=== PATIENT | male | born 1975 | race Caucasian/White ===

== ENCOUNTER 2016-07-20 17:11 | Emergency (ER) | payer MEDICARE ==
[~2016-07-20] VITALS: Ht 162.6 cm; Wt 65.8 kg
[~2016-07-20 17:11] MED LIST: ALPR-557 PO; AMOX500C2 PO; CARB200T76; CRB200T PO; CYCL10TA9 PO; EPITOL PO; HYDR-1231 PO; HYDR1TAB PO; LEVETIRACETAM; SOMA; SULF1TAB38 PO; [UNRECOGNIZED DRUG - CODE] PO; [UNRECOGNIZED DRUG - REMARK]
[2016-07-20] MEDS ORDERED: LEVE100015 PO ×2 (17:41→17:42)
[2016-07-20] MEDS ORDERED: morphine INJ 10 MG/ML 1ML (SYR OR VIAL) IM STA (17:56)
[2016-07-20] MEDS ORDERED: LIDOCAINE/EPI 1%-1:100,000 (XYLOCAINE) 20ML INJ STA (17:56)
--- NOTE | 2016-07-20 18:04 | ED Integumentary General ---
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 Patient states he has had multiple abscesses and thinks this is related to loading shingles at work. Patient states he has been squeezing the area and has gotten some purulent drainage. Denies fevers. Patient states he is very clean, but the people he lives with are dirty. Location Injury Occurred: denies known injury Timing/Duration: getting worse, other (2 days) Location: face Possible Cause: no cause identified (patient thinks this is related to loading shingles, but unsure) Modifying Factors: worse with other (worse was squeezing and palpation) Allergies and Home Medications Allergies Coded Allergies: NKANo Known Allergies (Verified Allergy, Unknown, 12/29/06) No Known Drug Allergies (Unverified , 07/13/08) Home Medications Alprazolam 0.5 Mg Tab, 0.5 MG PO TID PRN for ANXIETY, (Reported) Hydrocodone/Acetaminophen 1 Each Tablet, 1 EACH PO Q4H PRN for PAIN, #10 Ref 0 Prescribed by: SHWETA DOMINGUEZ on 07/20/161812 Levetiracetam 1,000 Mg Tablet, 1,000 MG PO AM, (Reported) Levetiracetam 1,000 Mg Tablet, 1,500 MG PO PM, (Reported) Minocycline HCl 100 Mg Capsule, 100 MG PO BID, #20 Ref 0 Prescribed by: SHWETA DOMINGUEZ on 07/20/161812 Sulfamethoxazole/Trimethoprim 1 Each Tablet, 1 EACH PO BID, #20 Ref 0 Prescribed by: SHWETA DOMINGUEZ on 07/20/161812 Constitutional: No chills, No dizziness, No fever, No malaise EENTM: mouth swelling (right jaw swelling), see HPI, No ear discharge, No ear pain, No eye pain, No nose congestion, No throat pain, No throat swelling Respiratory: No cough, No short of breath, No stridor, No wheezing Cardiovascular: no symptoms reported Gastrointestinal: no symptoms reported Musculoskeletal: no symptoms reported Skin: see HPI Psychiatric/Neurological: Denies Headache All Other Systems Reviewed Negative Unless Noted: Yes (Negative excepted noted.) Past Wbxymxi-Ctvoqn-Qbrubk Hx Patient Social History Alcohol Use: Denies Use Recreational Drug Use: Yes (POT) Smoking Status: Never a Smoker Recent Foreign Travel: No Contact w/Someone Who Travel: No Recent Infectious Disease Expo: No Immunizations Up To Date Tetanus Booster (TDap): Less than 5yrs Seasonal Allergies Seasonal Allergies: No Surgeries HX Surgeries: Yes Surgeries: Ear Surgery, Tonsillectomy Respiratory Hx Respiratory Disorders: No Cardiovascular Hx Cardiac Disorders: No Neurological Hx Neurological Disorders: Yes Neurological Disorders: Seizure Disorder Reproductive System Hx Reproductive Disorders: No Genitourinary Hx Genitourinary Disorders: No Gastrointestinal Hx Gastrointestinal Disorders: No Musculoskeletal Hx Musculoskeletal Disorders: No Endocrine Hx Endocrine Disorders: No HEENT HX ENT Disorders: No Cancer Hx Cancer: No Psychosocial Hx Psychiatric Problems: Yes Behavioral Health Disorders: Anxiety Integumentary HX Skin/Integumentary Disorder: No Blood Transfusions Hx Blood Disorders: No Reviewed Nursing Assessment Reviewed/Agree w Nursing PMH: Yes Family Medical History Significant Family History: No Pertinent Family Hx Physical Exam Vital Signs Vital Sign - Last 12Hours 07/20/16 17:25 Temp 97.7 Pulse 89 Resp 18 B/P (MAP) 147/104 Pulse Ox 99 O2 Delivery Room Air Capillary Refill : Less Than 3 Seconds General Appearance: WD/WN, no apparent distress HEENT: PERRL/EOMI, pharynx normal, other (swelling, erythema, warmth of the rt mandible. 2 ulcerations noted.) Neck: non-tender, full range of motion, supple, normal inspection Cardiovascular: regular rate, rhythm, no murmur Respiratory: lungs clear, normal breath sounds, no respiratory distress Neurologic/Psychiatric: alert, normal mood/affect, oriented x 3 Skin: warm/dry (no active drainage), other (swelling, erythema, warmth of the rt mandible. 2 ulcerations noted.) Skin Problem Location: face (rt mandibular region) Skin Problem Character: abscess, erythema, swelling, tenderness, warm I&D : Site: rt mandibular region Blade Size: 11 I & D Procedure: betadine prep, sterile drapes applied, sterile dressing applied, Wound Packing Packing/Drain: Idoform 03/27 Progress 1%lidocaine w/ epinephrine infused in the rt cheek/jaw. A 1 cm incision was made over the fluctuant area of the rt jaw and rt lower cheek. A small amount of purulent drainage was cultured and sent to lab for C&S. Blood loss minimal. Patient tolerated the procedure well. Progress/Results/Core Measures Results/Orders Micro Results Microbiology 07/20/16 Gram Stain - Final, Resulted 07/20/16 Wound Culture - Preliminary, Resulted Staphylococcus Aureus 07/20/16 Gram Stain - Final, Resulted 07/20/16 Wound Culture - Preliminary, Resulted Staphylococcus Aureus My Orders Orders - SHWETA DOMINGUEZ Lidocaine/Epi 1% 1:100,000 (Xylocaine /E (07/20/16 17:56) Morphine Injection (Morphine Injection (07/20/16 17:56) Rx-Hydrocodone/Apap 5-325 Mg (Rx-Vicodin (07/20/16 20:30) Rx-Doxycycline Tablet (Rx-Vibramycin Tab (07/20/16 20:21) Rx-Trimeth/Sulfameth Ds Tab (Rx-Bactrim/ (07/20/16 20:21) Wound Culture (07/20/16 22:49) Wound Culture (07/20/16 22:49) Vital Signs/I&O Vital Sign - Last 12Hours 07/20/16 07/20/16 17:25 20:44 Temp 97.7 97.7 Pulse 89 91 Resp 18 18 B/P (MAP) 147/104 Pulse Ox 99 99 O2 Delivery Room Air Blood Pressure Mean: 118 Departure Communication Progress Notes patient refuses lab work or CT scan. States he would like "a rain check until tomorrow." Patient states his rhinitis waiting on him and cannot wait for the CT scan to be done or lab work. Dr. Humphries notified patient's refusal for lab work and CT scan. Plan for discharge to home with oral Bactrim and doxycycline. Patient given hydrocodone for pain. Take-home packs of Bactrim, doxycycline, and hydrocodone sent with patient from the emergency department. Impression Impression: Primary Impression: Abscess Disposition: HOME, SELF-CARE Condition: Improved Departure-Patient Inst. Decision time for Depature: 18:15 Referrals: [facility] (PCP/Family) Primary Care Physician Patient Instructions: Abscess Incision and Drainage (DC), Skin Abscess Add. Discharge Instructions: All discharge instructions reviewed with patient and/or family. Voiced understanding. Medications as instructed. Ibuprofen 800 mg by mouth every 8 hours as needed for pain. Shower with antibacterial soap. Tomorrow morning remove the packing, shower with antibacterial soap, pat dry, repack with iodoform gauze as instructed and cover with a bandage. Follow-up with her family practitioner for recheck on Friday, call first thing Friday morning for appointment time. Return to the emergency department for worsened pain, fever, redness, drainage, swelling, or any other concerns. Scripts Hydrocodone/Acetaminophen (Hydrocodon -Acetaminophen 5-325) 1 Each Tablet 1 EACH PO Q4H Y for PAIN, #10 TAB 0 Refills Prov: SHWETA DOMINGUEZ 07/20/16 Minocycline HCl (Minocycline HCl) 100 Mg Capsule 100 MG PO BID, #20 CAP 0 Refills Prov: SHWETA DOMINGUEZ 07/20/16 Sulfamethoxazole/Trimethoprim (Sulfamethoxazole-Tmp Ds Tablet) 1 Each Tablet 1 EACH PO BID, #20 TAB 0 Refills Prov: SHWETA DOMINGUEZ 07/20/16 SHWETA DOMINGUEZ Jul 20, 2016 18:04
[2016-07-20] MEDS ORDERED: MINO100C2 PO (18:13)
[2016-07-20] MEDS ORDERED: SULF-222 PO (18:13)
[2016-07-20] MEDS ORDERED: HYDR-3812 PO (18:13)
[2016-07-20] MEDS ORDERED: RX-DOXYCYCLINE 100 MG (VIBRAMYCIN) TAB PPK#2 PO STA (20:21)
[2016-07-20] MEDS ORDERED: RX-TRIMETH/SULFA. 160-800 MG (BACTRIM DS) TAB PPK#2 PO STA (20:21)
[2016-07-20] MEDS ORDERED: RX-HYDROCODONE/APAP 5/325 MG #4 TAB PK PO PRN (20:30)
[2016-07-20 20:44] VITALS: BP 146/115
== END 2016-07-20 20:44 | disposition home or self-care (01) ==
LOC: EDUNIT# 17:11 → ER 17:14
DX: L02.01 Cutaneous abscess of face (principal)
CPT/HCPCS: 87070; 87077; 87186; 87205; 96372; 99283

== ENCOUNTER 2016-08-10 15:10 | Emergency (ER) | payer MEDICARE ==
[~2016-08-10] VITALS: Ht 162.6 cm; Wt 65.8 kg
[~2016-08-10 15:10] MED LIST changes: +HYDR-3812 PO; +LEVE100015 PO; +MINO100C2 PO; +SULF-222 PO
--- NOTE | 2016-08-10 15:34 | ED Trauma-Multisystem ---
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 He reports that he landed on his feet. He complains of pain in the left foot and ankle. In addition he has a laceration on his left chin which he reports came from the mariah of a pitchfork which he had in his hands. He does not complain of headache or neck pain. He also reports that this is not the first time that he fell off a roof area. Allergies and Home Medications Allergies Coded Allergies: NKANo Known Allergies (Verified Allergy, Unknown, 12/29/06) No Known Drug Allergies (Unverified , 07/13/08) Home Medications Alprazolam 0.5 Mg Tab, 0.5 MG PO TID PRN for ANXIETY, (Reported) Hydrocodone/Acetaminophen 1 Each Tablet, 1 EACH PO Q4H PRN for PAIN, #10 Ref 0 Prescribed by: SHWETA DOMINGUEZ on 07/20/161812 Levetiracetam 1,000 Mg Tablet, 1,000 MG PO AM, (Reported) Levetiracetam 1,000 Mg Tablet, 1,500 MG PO PM, (Reported) Constitutional: see HPI Eyes: No Symptoms Reported Ears: No Symptoms Reported Nose: No Symptoms Reported Mouth: No Symptoms Reported Throat: No Symptoms to Report Respiratory: no symptoms reported Cardiovascular: No Symptoms Reported Gastrointestinal: no symptoms reported Genitourinary: no symptoms reported Musculoskeletal: no symptoms reported Skin: no symptoms reported Psychiatric/Neurological: No Symptoms Reported Other 3 cm angular laceration left Past Ljcpttl-Tycqwv-Fpsfhb Hx Patient Social History Recent Foreign Travel: No Contact w/Someone Who Travel: No Immunizations Up To Date Tetanus Booster (TDap): Less than 5yrs Seasonal Allergies Seasonal Allergies: No Surgeries HX Surgeries: Yes Surgeries: Ear Surgery, Tonsillectomy Respiratory Hx Respiratory Disorders: No Cardiovascular Hx Cardiac Disorders: No Neurological Hx Neurological Disorders: Yes Neurological Disorders: Seizure Disorder Reproductive System Hx Reproductive Disorders: No Genitourinary Hx Genitourinary Disorders: No Gastrointestinal Hx Gastrointestinal Disorders: No Musculoskeletal Hx Musculoskeletal Disorders: No Endocrine Hx Endocrine Disorders: No HEENT HX ENT Disorders: No Cancer Hx Cancer: No Psychosocial Hx Psychiatric Problems: Yes Behavioral Health Disorders: Anxiety Integumentary HX Skin/Integumentary Disorder: No Blood Transfusions Hx Blood Disorders: No Family Medical History Significant Family History: No Pertinent Family Hx Physical Exam Vital Signs Vital Sign - Last 12Hours 08/10/16 15:25 Temp 98.3 Pulse 93 Resp 24 B/P (MAP) 153/105 Pulse Ox 97 General Appearance: No Apparent Distress, WD/WN Head: Other (angular crude laceration 3 cm in length over the lateral left chin ) Eyes: Bilateral Eye Normal Inspection, Bilateral Eye PERRL Ears, Nose, Throat: Other (jaw tenderness) Neck: Full Range of Motion, Normal Inspection Cardiovascular: Regular Rate, Rhythm, No Edema, No Gallop, No JVD, No Murmur, Normal Peripheral Pulses Respiratory: Chest Non Tender, Lungs Clear, Normal Breath Sounds, No Accessory Muscle Use, No Respiratory Distress Gastrointestinal: Normal Bowel Sounds, No Organomegaly, No Pulsatile Mass, Non Tender, Soft Comments Some tenderness to palpation of the left calcaneus. There was no discoloration or swelling noted. Alondra Coma Score Best Eye Response ([place]): (4) Open Spontaneously Best Verbal Response ([place]): (5) Oriented Best Motor Response ([place]): (6) Obeys Commands Progress/Results/Core Measures Results/Orders My Orders Orders - GAVIN DICKINSON MD Foot, Left, 3 Views (08/10/16 15:34) Ankle, Left, 3 Views (08/10/16 15:34) Ct Head/Cervical Spine Wo (08/10/16 15:34) Vital Signs/I&O Vital Sign - Last 12Hours 08/10/16 08/10/16 15:25 17:05 Temp 98.3 Pulse 93 102 Resp 24 18 B/P (MAP) 153/105 Pulse Ox 97 99 Departure Communication Progress Notes CT scan of the head and neck were negative. Plain films of the left foot and ankle are negative. I had planned to do a CT scan of the jaw prior to repairing the laceration. This was not ordered and the first pass through. The patient elected to leave AMA before completion of exam or closure of laceration. Impression Impression: Primary Impression: fall from roof Additional Impression: laceration left chin Disposition: 07 AGAINST MEDICAL ADVICE Condition: Stable/Unchanged Departure-Patient Inst. Referrals: [facility] (PCP/Family) Primary Care Physician GAVIN DICKINSON MD August 10, 2016 15:34
--- NOTE | 2016-08-10 16:23 | Diagnostic Imaging Report ---
INDICATION: Fall. Pain. COMPARISON: None. EXAMINATION: Three views of the left foot were obtained. FINDINGS: No acute fracture, malalignment or osseous destructive process is seen. IMPRESSION: Negative left foot Dictated by: Dictated on workstation # [id number]
--- NOTE | 2016-08-10 16:23 | Diagnostic Imaging Report ---
PROCEDURE: CT head and CT cervical spine without contrast. TECHNIQUE: Multiple contiguous axial images were obtained through the brain and cervical spine without the use of intravenous contrast. Sagittal and coronal reformations through the cervical spine were then performed. INDICATION: Status post fall off a ladder. History of epilepsy, right upper lobe. CORRELATION STUDY: CT head, 01/16/2013. FINDINGS: CT head: Ventricles and sulci appear unremarkable. There is a somewhat bilobed small nodular area of low density in the deep right frontal lobe adjacent to the caudate lobe. This was not demonstrated on prior study but appears nonacute. The brain parenchyma is otherwise unremarkable. No intracranial hemorrhage. No midline shift or mass effect. Basilar cisterns are maintained. Soft tissue nodular opacification of the anterior left ethmoid air cells could reflect small cyst or polyp. Bony calvarium is unremarkable. CT cervical spine: Cervical spinal alignment is anatomic. Vertebral body heights are maintained. There is no acute fracture or traumatic subluxation. Disc spaces overall are fairly well preserved. Minimal endplate spurring at the C3-C4 level. Ossification anteriorly at C4-C5 level may reflect minimal ossification along the anterior and longitudinal ligament. Posterior elements intact. Odontoid intact. Lung apices unremarkable. Paraspinal soft tissues unremarkable. IMPRESSION: CT head: 1. Negative for acute traumatic intracranial abnormality. 2. Small nodular low-density area in the right frontal lobe deep white matter adjacent to the caudate lobe. This is nonspecific but appears to be likely nonacute. This could be reflective of a prior area of lacunar infarct. Consideration might be given to nonemergent followup MRI with and without contrast. CT cervical spine: 1. Negative for acute fracture or traumatic subluxation. Dictated by: Dictated on workstation # [id number]
--- NOTE | 2016-08-10 16:24 | Diagnostic Imaging Report ---
INDICATION: Fall. Pain. COMPARISON: None. EXAMINATION: Three views of the left ankle were obtained. FINDINGS: No acute fracture, malalignment or osseous destructive process is demonstrated. Joint space is preserved. The soft tissues appear unremarkable. IMPRESSION: Negative left ankle. Dictated by: Dictated on workstation # [id number]
[2016-08-10 17:05] VITALS: BP 128/72
== END 2016-08-10 17:09 | disposition left against medical advice (07) ==
LOC: EDUNIT# 15:10 → ER 15:13
DX: S01.81XA Laceration without foreign body of other part of head, initial encounter (principal); S99.912A Unspecified injury of left ankle, initial encounter; S99.922A Unspecified injury of left foot, initial encounter; W13.2XXA Fall from, out of or through roof, initial encounter; Y93.H9 Activity, other involving exterior property and land maintenance, building and construction; Y99.8 Other external cause status; Z53.29 Procedure and treatment not carried out because of patient's decision for other reasons
CPT/HCPCS: 70450; 72125; 73610; 73630; 99282

== ENCOUNTER 2016-11-18 08:47 | Emergency (ER) | payer MEDICARE ==
--- OUTSIDE RECORDS SUMMARY | 2016-11-18 12:55 | XMS REPORT ---
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
--- OUTSIDE RECORDS SUMMARY | 2016-11-18 12:55 | XMS REPORT ---
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
== END 2016-11-18 09:47 | disposition left against medical advice (07) ==
LOC: EDUNIT# 08:47 → ER 08:52
DX: R51 Headache (principal)

== ENCOUNTER 2016-11-20 07:57 | Emergency (ER) | payer MEDICARE ==
[~2016-11-20] VITALS: Ht 162.6 cm; Wt 65.8 kg
[2016-11-20] MEDS ORDERED: FLUT9.9S NS (08:44)
[2016-11-20] MEDS ORDERED: PROM25TA14 PO (08:44)
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
[2016-11-20 08:45] VITALS: BP 151/101
[2016-11-20] MEDS ORDERED: PROMETHAZINE INJ 25 MG/ML (PHENERGAN) AMP IM ONE (08:45)
== END 2016-11-20 08:45 | disposition home or self-care (01) ==
LOC: EDUNIT# 07:57 → ER 08:00
DX: G43.909 Migraine, unspecified, not intractable, without status migrainosus (principal); H65.93 Unspecified nonsuppurative otitis media, bilateral; R11.2 Nausea with vomiting, unspecified; G40.909 Epilepsy, unspecified, not intractable, without status epilepticus; F41.9 Anxiety disorder, unspecified; F17.210 Nicotine dependence, cigarettes, uncomplicated; Z90.89 Acquired absence of other organs
CPT/HCPCS: 96372; 99284

== ENCOUNTER 2017-01-06 16:03 | Emergency (ER) | payer MEDICARE ==
[~2017-01-06] VITALS: Ht 165.1 cm; Wt 74.8 kg
[~2017-01-06 16:03] MED LIST changes: +FLUT9.9S NS; +PROM25TA14 PO
[2017-01-06] MEDS ORDERED: TRIM/SULFAMETH 160/800 (SEPTRA DS) TAB PO ONE (18:00)
[2017-01-06] MEDS ORDERED: KETOROLAC 30 MG/ML VIAL IM ONE (18:00)
[2017-01-06] MEDS ORDERED: SULF1TAB35 PO (18:05)
--- NOTE | 2017-01-06 18:06 | ED EENT ---
History of Present Illness General Chief Complaint: Facial Problems Stated Complaint: FACIAL/LIP SWELLING Nursing Triage Note: Right side facial swelling/lip swelling. Patient reports that "it started out as a pimple that his picked and the swelling has gotten worse." Onset last night 01/05 at 6pm. Patient woke up with swelling this am. Source: patient Exam Limitations: no limitations History of Present Illness Time seen by provider: 18:02 Initial Comments Patient presents the ER by private conveyance with chief complaint of approximately 2 days progressively worsening upper lip swelling. He says he felt that he had a ingrown hair or black had there and his popped it and a got little purulence out of it. However he says it's only gotten worse today. Denies any fevers, chills, nausea, vomiting, shortness of breath, cough. He denies any difficulty swallowing, wheezing, difficulty breathing. Allergies and Home Medications Allergies Coded Allergies: NKANo Known Allergies (Verified Allergy, Unknown, 12/29/06) No Known Drug Allergies (Unverified , 07/13/08) Home Medications Alprazolam 0.5 Mg Tab, 0.5 MG PO TID PRN for ANXIETY, (Reported) Fluticasone Propionate 9.9 Ml Ruso.susp, 9.9 ML NS BID for 14 Days, #1 Ref 0 Prescribed by: LOUISE DIAZ on 11/20/16 0844 Hydrocodone/Acetaminophen 1 Each Tablet, 1 EACH PO Q4H PRN for PAIN, #10 Ref 0 Prescribed by: SHWETA DOMINGUEZ on 07/20/16 181 Levetiracetam 1,000 Mg Tablet, 1,000 MG PO AM, (Reported) Levetiracetam 1,000 Mg Tablet, 1,500 MG PO PM, (Reported) Promethazine HCl 25 Mg Tablet, 25 MG PO Q6H PRN for NAUSEA/VOMITING, #14 Ref 0 Prescribed by: LOUISE DIAZ on 11/20/16 0844 Sulfamethoxazole/Trimethoprim 1 Each Tablet, 1 EACH PO BID for 7 Days, #14 Ref 0 Prescribed by: LOUISE DIAZ on 01/06/17 1805 Review of Systems Constitutional: No chills, No diaphoresis, No fever Eyes: Denies Blurred Vision, Denies Drainage Ears: Denies Dizziness, Denies Pain Nose: denies clots, congestion Mouth: denies clots, denies loose teeth Throat: denies pain, denies swelling Respiratory: No cough, No short of breath Cardiovascular: No chest pain, No palpitations Gastrointestinal: No abdominal pain, No nausea Past Qcbqllc-Yyipzu-Ppqfdb Hx Patient Social History Alcohol Use: Denies Use Recreational Drug Use: No Type Used: Cigarettes 2nd Hand Smoke Exposure: Yes Recent Foreign Travel: No Contact w/Someone Who Travel: No Recent Infectious Disease Expo: No Recent Hopitalizations: No Physical Abuse: No Sexual Abuse: No Mistreated: No Fear: No Immunizations Up To Date Tetanus Booster (TDap): Less than 5yrs Seasonal Allergies Seasonal Allergies: No Surgeries History of Surgeries: Yes Surgeries: Ear Surgery, Tonsillectomy Respiratory History of Respiratory Disorde: No Cardiovascular History of Cardiac Disorders: No Neurological History of Neurological Disord: Yes Neurological Disorders: Seizure Disorder Reproductive System Hx Reproductive Disorders: No Genitourinary History of Genitourinary Disor: No Gastrointestinal History of Gastrointestinal Di: No Musculoskeletal History of Musculoskeletal Dis: No Endocrine History of Endocrine Disorders: No Cancer History of Cancer: No Psychosocial History of Psychiatric Problem: Yes Behavioral Health Disorders: Anxiety Suicide Risk Score: 0 Integumentary History of Skin or Integumenta: No Blood Transfusions History of Blood Disorders: No Family Medical History Significant Family History: No Pertinent Family Hx Physical Exam Vital Signs Vital Sign - Last 12Hours 01/06/17 17:33 Temp 97.7 Pulse 84 Resp 16 B/P (MAP) 139/89 Pulse Ox 98 O2 Delivery Room Air General Appearance: WD/WN, no apparent distress Eyes: bilateral eye normal inspection, bilateral eye PERRL, bilateral eye EOMI Ears: bilateral ear auricle normal, bilateral ear canal normal, bilateral ear TM normal Nose: normal inspection, No active bleeding, No discharge Mouth/Throat: other (upper lip with swelling and some erythema and tenderness but no area of fluctuance, pore, drainage, or evidence of abscess.) Neck: No supple, No normal inspection Neurologic/Psychiatric: alert, oriented x 3 Progress/Results/Core Measures Results/Orders My Orders Orders - LOUISE DIAZ Sulfamethoxazole/Trimet Ds Tab (Bactrim (01/06/17 18:00) Ketorolac Injection (Toradol Injection) (01/06/17 18:00) Medications Given in ED Current Medications Medications Dose Ordered Sig/Shira Route Start Time Stop Time Status Last Admin Dose Admin Ketorolac Tromethamine 15 mg ONCE ONCE IM 01/06/17 18:00 01/06/17 18:02 DC 01/06/17 18:11 15 MG Trimethoprim/ Sulfamethoxazole 1 ea ONCE ONCE PO 01/06/17 18:00 01/06/17 18:02 DC 01/06/17 18:11 1 EA Vital Signs/I&O Vital Sign - Last 12Hours 01/06/17 01/06/17 17:33 18:20 Temp 97.7 98.2 Pulse 84 67 Resp 16 18 B/P (MAP) 139/89 Pulse Ox 98 98 O2 Delivery Room Air Blood Pressure Mean: 106 Progress Note : Time: 04:26 Progress Note Nothing on the lip is amenable to drainage. We'll use antibiotics and warm compresses. Departure Impression Impression: Primary Impression: Cellulitis of face Disposition: 01 HOME, SELF-CARE Condition: Stable Departure-Patient Inst. Decision time for Depature: 18:03 Referrals: [facility] (PCP/Family) Primary Care Physician Patient Instructions: Cellulitis (Skin Infection), Adult (DC) Add. Discharge Instructions: Use Tylenol or Motrin as necessary to keep your pain under control. Apply a heat pack or warm washcloth over the face for 20 minutes every 4-6 hours as needed. Immediately return to the ER if you begin to have difficulty breathing or swelling in your throat. Take the antibiotics 1 tablet twice a day with food. Follow up with your primary care physician as needed. All discharge instructions reviewed with patient and/or family. Voiced understanding. Scripts Sulfamethoxazole/Trimethoprim (Bactrim Ds Tablet) 1 Each Tablet 1 EACH PO BID for 7 Days, #14 TAB 0 Refills Prov: LOUISE DIAZ 01/06/17 Work/School Note: Work Release Form Date Seen in the Emergency Department: Jan 06, 2017 Return to Work: Jan 07, 2017 Restrictions: No Restrictions Copy Copies To 1: DILLAN STYLES TITUS J Jan 06, 2017 18:06
[2017-01-06 18:20] VITALS: BP 123/74
--- OUTSIDE RECORDS SUMMARY | 2017-01-07 05:12 | XMS REPORT ---
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 Active 11266326 ALLERGIES Substance Reaction Event Type Date Status Trileptal Unknown Drug Allergy Mar, Active SOCIAL HISTORY No smoking Hx information available PLAN OF CARE Activity Details Follow Up 4 Weeks Reason:seizure VITAL SIGNS Height 67.85 in 2016-04-04 Weight 163.4 lbs 2016-04-04 Temperature 98.4 degrees Fahrenheit 2016-04-04 Heart Rate 120 bpm 2016-04-04 Respiratory Rate 20 2016-04-04 BMI 24.95 kg/m2 2016-04-04 Blood pressure systolic 138 mmHg 2016-04-04 Blood pressure diastolic 82 mmHg 2016-04-04 MEDICATIONS Medication Instructions Dosage Frequency Start Date End Date Duration Status Keppra 750 MG Orally every 12 hrs 1 tablet 12h Feb, 30 days Active Xanax 0.5 MG Orally Twice a day 1 tablet 12h Active RESULTS No Results PROCEDURES Procedure Date Ordered Related Diagnosis Body Site [facility] VISIT ESTABLISHED PATIENT Apr 04, 2016 Office Visit, Est Pt., Level 3 Apr 04, 2016 IMMUNIZATIONS No Known Immunizations
--- OUTSIDE RECORDS SUMMARY | 2017-01-07 05:12 | XMS REPORT ---
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.309 Active 05686002 Problem Nonintractable generalized idiopathic epilepsy without status epilepticus G40.309 Active 94951246 ALLERGIES Substance Reaction Event Type Date Status Trileptal blurred Vision Drug Allergy May, Active Tegretol blurred vision Drug Allergy May, Active SOCIAL HISTORY Never Assessed PLAN OF CARE Activity Details Follow Up 4 Weeks Reason:seizures VITAL SIGNS Height 67.85 in 2016-06-03 Weight 162.7 lbs 2016-06-03 Temperature 98.0 degrees Fahrenheit 2016-06-03 Heart Rate 100 bpm 2016-06-03 Respiratory Rate 20 2016-06-03 BMI 24.85 kg/m2 2016-06-03 Blood pressure systolic 118 mmHg 2016-06-03 Blood pressure diastolic 82 mmHg 2016-06-03 MEDICATIONS Medication Instructions Dosage Frequency Start Date End Date Duration Status Xanax 0.5 MG Orally Twice a day 1 tablet 12h Active Keppra 1000 MG Orally every 12 hrs 1 tablet 12h Feb, 30 days Active RESULTS No Results PROCEDURES Procedure Date Ordered Result Body Site [facility] VISIT ESTABLISHED PATIENT June 03, 2016 IMMUNIZATIONS No Known Immunizations MEDICAL (GENERAL) HISTORY Type Description Date Medical History hypertension Medical History seizures- epilepsy
--- OUTSIDE RECORDS SUMMARY | 2017-01-07 05:12 | XMS REPORT ---
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.309 Active 68759974 ALLERGIES Substance Reaction Event Type Date Status Trileptal blurred Vision Drug Allergy Apr, Active Tegretol blurred vision Drug Allergy Apr, Active SOCIAL HISTORY Never Assessed PLAN OF CARE Activity Details Follow Up 4 Weeks Reason:seizures VITAL SIGNS Height 67.85 in 2016-05-06 Weight 160.3 lbs 2016-05-06 Temperature 98.4 degrees Fahrenheit 2016-05-06 Heart Rate 106 bpm 2016-05-06 Respiratory Rate 20 2016-05-06 BMI 24.48 kg/m2 2016-05-06 Blood pressure systolic 114 mmHg 2016-05-06 Blood pressure diastolic 70 mmHg 2016-05-06 MEDICATIONS Medication Instructions Dosage Frequency Start Date End Date Duration Status Keppra 1000 MG Orally every 12 hrs 1 tablet 12h Feb, 30 days Active Xanax 0.5 MG Orally Twice a day 1 tablet 12h Active RESULTS No Results PROCEDURES Procedure Date Ordered Result Body Site [facility] VISIT ESTABLISHED PATIENT May 06, 2016 IMMUNIZATIONS No Known Immunizations MEDICAL (GENERAL) HISTORY Type Description Date Medical History hypertension Medical History seizures- epilepsy
== END 2017-01-06 18:20 | disposition home or self-care (01) ==
LOC: EDUNIT# 16:03 → ER 16:05
DX: L03.211 Cellulitis of face (principal); G40.909 Epilepsy, unspecified, not intractable, without status epilepticus; F41.9 Anxiety disorder, unspecified; Z77.22 Contact with and (suspected) exposure to environmental tobacco smoke (acute) (chronic); Z90.89 Acquired absence of other organs
CPT/HCPCS: 99284

== ENCOUNTER 2019-02-07 09:14 | Emergency (ER) | payer SELFPAY ==
[~2019-02-07] VITALS: Ht 175 cm; Wt 81.8 kg
[~2019-02-07 09:14] MED LIST changes: +ACHD5005 PO; -HYDR-3812 PO; +SULF1TAB35 PO
[2019-02-07] MEDS ORDERED: HYDROcodone/APAP 5 MG/325 MG (LORTAB) TAB PO ONE (09:30)
[2019-02-07] MEDS ORDERED: LIDOCAINE 2% VISCOUS 15 ML UDC MM ONE (09:30)
[2019-02-07] MEDS ORDERED: TRIM/SULFAMETH 160/800 (SEPTRA DS) TAB PO ONE (09:30)
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
[2019-02-07] MEDS ORDERED: SULF1TAB35 PO (09:51)
[2019-02-07] MEDS ORDERED: HYDR-3812 PO (09:51)
[2019-02-07 09:59] VITALS: BP 108/76
== END 2019-02-07 09:59 | disposition home or self-care (01) ==
LOC: EDUNIT# 09:14 → ER 09:15
DX: T21.22XA Burn of second degree of abdominal wall, initial encounter (principal); T23.232A Burn of second degree of multiple left fingers (nail), not including thumb, initial encounter; T31.0 Burns involving less than 10% of body surface; G40.909 Epilepsy, unspecified, not intractable, without status epilepticus; F41.9 Anxiety disorder, unspecified; F17.210 Nicotine dependence, cigarettes, uncomplicated; Z90.89 Acquired absence of other organs; X08.8XXA Exposure to other specified smoke, fire and flames, initial encounter
CPT/HCPCS: 99283